=== PATIENT | male | born 1980 | race Caucasian/White ===

== ENCOUNTER 2018-04-05 17:00 | Emergency (ER) | payer OTHER ==
[~2018-04-05] VITALS: Ht 177.8 cm; Wt 97.5 kg
[2018-04-05 17:25] VITALS: BP 134/79
[2018-04-05 17:48] LABS: ABSOLUTE BASOPHIL COUNT 0 /CUMM (0.0-0.2); ABSOLUTE EOSINOPHIL COUNT 0.3 /CUMM (0.0-0.7); ABSOLUTE MONOCYTE COUNT 0.7 /CUMM (0.10-0.60); BASOPHIL % 0.2 % (0.0-2.0); EOSINOPHIL % 3.3 % (0-5); GRANULOCYTE % 79.5 % (42.2-75.2); HEMATOCRIT 40.1 % (42-52); MEAN CORPUSCULAR HGB 30.1 PG (27.0-31.0); MEAN CORPUSCULAR HGB CONC 34.5 G/DL (33.0-37.0); MEAN CORPUSCULAR VOLUME 87.4 FL (80.0-94.0); MEAN PLATELET VOLUME 8.2 FL (7.4-10.4); PLATELET COUNT 241 /CUMM (130-400); RBC DISTRIBUTION WIDTH 12.9 % (11.5-14.5); RED BLOOD CELL CT 4.59 /CUMM (4.70-6.10); WHITE BLOOD CELL COUNT 10.1 /CUMM (4.8-10.8)
--- NOTE | 2018-04-05 18:05 | ED GENERAL ADULT ---
History of Present Illness General Chief Complaint: Animal/Insect Bite Stated Complaint: BEE STING PROGRESSIVLY GETTING WORSE Source: patient Exam Limitations: no limitations Vital Signs & Intake/Output Vital Signs & Intake/Output Vital Signs Date Time Temp Pulse Resp B/P B/P Pulse O2 O2 Flow FiO2 Mean Ox Delivery Rate 04/05 1725 98.8 100 18 134/79 97 Room Air Allergies Coded Allergies: venom-honey bee (SWELLING THAT TRAVELS FROM SITE OF STING ON AFFECTED LIMB 04/05) Reconcile Medications Methylprednisolone. (Medrol) 4 MG TAB.DS.PK 1 DP PO AD bee sting 6 on day 1 then reduce by one tablet daily until gone Triage Note: PT WAS STUNG BY A BEE TUESDAY ON RLE, AREA HAS BEEN SWOLLEN , RED WARM TO TOUCH SINCE YESTERDAY, HAS BEEN TAKING BENADRYL WITH NO RELIEF OF SWELLING , ALSO STATES THAT H E HAS HAD NAUSEA Triage Nurses Notes Reviewed? yes Onset: Abrupt Duration: day(s): Timing: constant HPI: 37 y/o male with no known PMHx presenting with left ankle/foot swelling and itching s/p bee sting 2 days ago. Has been using benadryl without relief. Had mild nausea earlier that has since self resolved, no vomiting. Denies fevers or purulent drainage. (Charley Echevarria) Past History Travel History Traveled to [place] past 21 day No Medical History Any Pertinent Medical History? none Neurological: NONE EENT: NONE Cardiovascular: NONE Respiratory: NONE Gastrointestinal: NONE Hepatic: NONE Renal: NONE Psychiatric: NONE Endocrine: NONE Blood Disorders: NONE Cancer(s): NONE OILER BANDER/Reproductive: NONE Surgical History Surgical History: non-contributory Psychosocial History What is your primary language Indonesian Tobacco Use: Never used ETOH Use: denies use Illicit Drug Use: denies illicit drug use Family History Hx Contributory? No (Charley Echevarria) Review of Systems Review of Systems Constitutional: Reports: no symptoms. EENTM: Reports: no symptoms. Respiratory: Reports: no symptoms. Cardiovascular: Reports: no symptoms. GI: Reports: no symptoms. Genitourinary: Reports: no symptoms. Musculoskeletal: Reports: see HPI. Skin: Reports: see HPI. Neurological/Psychological: Reports: no symptoms. Hematologic/Endocrine: Reports: no symptoms. Immunologic/Allergic: Reports: no symptoms. All Other Systems: Reviewed and Negative (Charley Echevarria) Physical Exam Physical Exam General Appearance: well developed/nourished, no apparent distress, alert, awake , comfortable Head: atraumatic, normal appearance Eyes: Bilateral: normal appearance. Neck: normal inspection Respiratory: normal breath sounds, lungs clear Cardiovascular: regular rate/rhythm Gastrointestinal: soft, non-tender Back: normal inspection Extremities: left ankle/foot: +edema and erythema puncture wound to posterior ankle that has scabbed over unrestricted ROM at the ankle sensation intact motor strength 5/5 distal pulse 2+ able to bear weight and ambulate with a steady gait Neurologic/Psych: awake, alert, oriented x 3, normal gait, normal mood/affect Skin: warm/dry Core Measures ACS in differential dx? No CVA/TIA Diagnosis: No Sepsis Present: No Sepsis Focused Exam Completed? No (Chraley Echevarria) Progress Differential Diagnoses I considered the following diagnoses in my evaluation of the patient: [insect sting vs allergic reaction, low concern for cellulitis vs septic joint] Plan of Care: Orders Procedure Date/time Status LACTIC ACID 04/05 172 Complete CBC WITHOUT DIFFERENTIAL 04/05 172 Complete BASIC METABOLIC PANEL 04/05 172 Complete Laboratory Tests 04/05/18 1736: Anion Gap 6, Estimated GFR > 60, BUN/Creatinine Ratio 17.3, Glucose 133 H, Lactic Acid 1.3, Calcium 9.0, CBC w Diff NO MAN DIFF REQ, RBC 4.59 L, MCV 87.4, MCH 30.1, MCHC 34.5, RDW 12.9, MPV 8.2, Gran % 79.5 H, Lymphocytes % 9.7 L, Monocytes % 7.3, Eosinophils % 3.3, Basophils % 0.2, Absolute Granulocytes 8.0 H, Absolute Lymphocytes 1.0 L, Absolute Monocytes 0.7 H, Absolute Eosinophils 0.3, Absolute Basophils 0 Labs unremarkable, including normal WBC and lactic Low concern for infection, likely allergic/inflammtory in etiology Will tx with benadryl and medrol dose pack Patient in agreement with plan Will f/u with PMD and given strict return precautions Initial ED EKG: none (Charley Echevarria) Departure Departure Disposition: HOME OR SELF CARE Condition: Stable Clinical Impression Primary Impression: Bee sting Referrals: Rosaline JAIME,Slava Trujillo (PCP/Family) Additional Instructions: Use benadryl and medrol dose pack to help alleviate swelling and itching. Follow up with your primary care provider for re-evaluation. Return to the emergency department for any new or worsening symptoms. Departure Forms: Customer Survey General Discharge Information Prescriptions: Current Visit Scripts Methylprednisolone. (Medrol) 1 DP PO AD #1 DP 6 on day 1 then reduce by one tablet daily until gone (Charley Echevarria) PA/MARINATOR Co-Sign Statement Statement: ED Attending supervision documentation- [] I saw and evaluated the patient. I have also reviewed all the pertinent lab results and diagnostic results. I agree with the findings and the plan of care as documented in the PA's/MARINATOR's documentation. [x] I have reviewed the ED Record and agree with the PA's/MARINATOR's documentation. [] Additions or exceptions (if any) to the PAs/MARINATOR's note and plan are summarized below: [] (Dane Rothman DO) Critical Care Note Critical Care Note Critical Care Time: non-applicable (Charley Echevarria)
[2018-04-05] MEDS ORDERED: MEDROL4 M2 PO (19:06)
== END 2018-04-05 19:06 ==
LOC: ERH 17:00
PROVIDERS: Physician Assistant
DX: T63.441A Toxic effect of venom of bees, accidental (unintentional), initial encounter (principal); Y92.9 Unspecified place or not applicable; Y93.9 Activity, unspecified